=== PATIENT | female | born 1990 | race American Indian/Alaskan Native ===

== ENCOUNTER 2020-07-11 10:03 | Inpatient (IN) ==
[2020-07-11] MEDS ORDERED: OXYTOCIN 30 UNITS/500 ML BAG IV PRN ×2 (10:55→21:24)
--- NOTE | 2020-07-11 11:07 | History & Physical Report ---
Date of Service July 11, 2020 Assessment & Plan (1) Elective induction of labor planned: (2) History of IUFD: 29 yo [id number] at 39.2 wks with h/o preeclampsia, IUGR,IUFD at 29 wks in 2017, then FT in 2018 VSS Afebrile FHR reassuring GBS neg Cervic unfavorable Plan to admit, monitor, labs, Cervical ripening All questions were answered (3) History of pre-eclampsia in prior , currently : (4) Gestational diabetes mellitus (GDM): Admission and Anticipated Discharge Date Admission Date: July 11, 2020 History of Present Illness Primary Care Provider: Germania Mujica Patient is a 29 yo at 39.2 wks who is being admitted for induction of labor at term due to history of IUGR, severe preeclampsia and still at 29 weeks during her first in [facility]. Her second was uncomplicated she was delivered by myself at 39 weeks training 2977 g healthy baby girl. She has been taking low-dose aspirin since the beginning of this . Last growth scan was at 34 weeks and normal growth. She has diet-controlled gestational diabetes, not required medications. Patient has no complaints today. No contractions, leakage of fluid, vaginal bleeding. She reports good movements. No fever, chills, chest pain, shortness of breath, cough. She had COVID in and recovered completely. Allergies Allergy/AdvReac Type Severity Reaction Status Date / Time No Known Allergies Allergy Unverified 01/20/18 11:47 Home Medications Medication Instructions Recorded Confirmed Type 1 tab PO DAILY 90 Days #90 tab 01/20/18 01/21/18 History aspirin [Aspir-81] 81 mg PO DAILY #0 01/20/18 01/21/18 History calcium carbonate-vitamin D3 1 tab PO BID #0 tab 01/20/18 01/21/18 History [Os-Malik 500 + D3] ferrous sulfate 325 mg PO BID #0 01/20/18 01/21/18 History ibuprofen 600 mg PO Q6 PRN #40 tab 01/22/18 Rx Patient History Medical History No known health problems Surgical History History of dilatation and curettage Social History Assistive Devices: None OB History per HPI [employer] History No h/o STD Review of Systems All systems reviewed & are unremarkable except as noted in HPI & below Physical Exam Constitutional: WD/WN, vitals as above well developed Confortable, NAD Gastrointestinal (Abdomen): normal bowel sounds, soft, nontender, no hepatosplenomegaly (GRAVID) Genitourinary: normal external appearance OB Exam Abdomen: + vertex Manual OB Exam: + cervical dilation 1 cm, + cervical effacement 20% and + station high OB Exam Monitor Tracing: + external uterine monitor used and + category I Results & Data ([facility]) Vital Signs (Past 12 Hours) Vital Signs Pulse BP 07/11/20 10:19 81 122/77
[2020-07-11] MEDS ORDERED: DINOPROSTONE 10 MG INSERT PV ONE (11:15)
[2020-07-11 11:18] LABS: Hematocrit (blood only) 32.5 % (37-47); Hemoglobin 11.2 g/dL (12.0-16.0); Mean Corpuscular Hemoglobin 29.7 pg (25-34); Mean Corpuscular Hgb Conc 34.5 g/dL (32-36); Mean Corpuscular Volume 86.2 fL (80-100); Mean Platelet Volume 9.7 fL (7.4-10.4); Platelet Count 241 K/uL (130-400); RDW Coefficient of Variation 14.7 % (11.5-14.5); RDW Standard Deviation 45.4 fL (36.4-46.3); Red Blood Count 3.77 M/uL (4.2-5.4); White Blood Count 6.74 K/uL (4.8-10.8)
[2020-07-11 11:44] LABS: Albumin Level 2.7 gm/dl (3.4-5.0); BUN Creatinine Ratio 19.1 (10-20); Creatinine Clr Calc Pharmacy 140.8 ml/min; Est GFR (African American) 147.6; Est GFR (Non-African American) 127.3; Potassium 3.3 mmol/L (3.5-5.1)
[2020-07-11 11:47] LABS: Albumin Globulin Ratio 0.7 (0.9-2); Bilirubin,Total 0.2 mg/dl (0.2-1); Globulin 3.7 gm/dl (2.5-4.0); Total Protein 6.4 gm/dl (6.4-8.2)
[2020-07-11] MEDS ORDERED: BUPIVACAINE 0.25% 30 ML VIAL ONE (17:13)
[2020-07-11] MEDS ORDERED: fentaNYL citrate 100 MCG/2 ML VIAL ONE (17:13)
[2020-07-11] MEDS ORDERED: ePHEDrine sulfate 50 MG/ML AMP ONE (17:13)
[2020-07-11] MEDS ORDERED: SODIUM CHLORIDE 0.9% INJ 10 ML VIAL ONE (17:13)
[2020-07-11] MEDS ORDERED: fentaNYL 2MCG/ML ROPIVACAINE 1.25MG/ML 100 ML BAG EPI ONE (17:14)
[2020-07-11] MEDS: LACTATED RINGER'S 1,000 ML IV PRN ×2 (17:20→17:58)
--- NOTE | 2020-07-11 17:22 | Obstetrical Progress Note ---
Date of Service July 11, 2020 Assessment & Plan Admission and Anticipated Discharge Date Admission Date: July 11, 2020 Subjective Patient is reevaluated She has been feeling crampy Pain was intense when she was walking, now tolerabel in bed VE; 4-5 cm/ 60%/ -2, bulging bag, AROM'ed with verbal consent, clear fluid FHR categ I Continue to monitor closely Results & Data ([facility]) Vital Signs (Past 12 Hours) Vital Signs Temp Pulse Resp BP 07/11/20 15:09 36.9 C 16 07/11/20 15:02 80 123/81 07/11/20 14:01 89 128/77 07/11/20 13:59 37.1 C 20 07/11/20 11:13 36.8 C 20 07/11/20 10:19 36.8 C 81 20 122/77
--- NOTE | 2020-07-11 18:01 | Anesthesiology Consultation ---
Date of Service July 11, 2020 Assessment & Plan (1) Encounter for pre-operative examination: Chart Review Chart Review: Acceptable Risk for Labor Epidural History Height/Weight Height: 5 ft 2 in Weight: 67.132 kg Allergies Allergy/AdvReac Type Severity Reaction Status Date / Time No Known Allergies Allergy Verified 07/11/20 12:18 Medications Home Medications Medication Instructions Recorded Confirmed Last Taken calcium carbonate-vitamin D3 1 tab PO BID #0 tab 01/20/18 07/11/20 07/10/20 13:00 [Os-Malik 500 + D3] aspirin 81 mg PO DAILY 07/11/20 07/11/20 07/10/20 13:00 prenat.vits,malik,fnh-vgxy-etely 1 tab PO DAILY 07/11/20 07/11/20 07/10/20 13:00 [ Vitamin] Active Medications Generic Name Dose Route Start Last Admin Trade Name Freq PRN Reason Stop Dose Admin Lactated Ringer's 1,000 mls @ 150 mls/hr 07/11/20 10:55 07/11/20 17:58 Lr IV 07/13/20 10:54 150 mls/hr .[id number] PRN Administration L&D Protocol Protocol Past Medical History Medical History No known health problems Past Surgical History Surgical History History of dilatation and curettage Social History Smoking Status: Never smoker Hx Alcohol Use: No Hx Substance Use: No substance use type: does not use Physical Exam Vital Signs Last Vital Signs Temp 36.9 C 07/11/20 15:09 Pulse 78 07/11/20 17:58 Resp 16 07/11/20 15:09 BP 135/89 07/11/20 17:27 Pulse Ox 100 07/11/20 17:58 Testing Laboratory Results 07/11/20 11:07 07/11/20 11:07
[2020-07-11] MEDS ORDERED: fentaNYL 2MCG/ML ROPIVACAINE 1.25MG/ML 100 ML BAG EPI PRN (18:21)
[2020-07-11] MEDS ORDERED: NALOXONE HCL 1 MG in SODIUM CHLORIDE 0.9% 1000ML 1,000 ML IV PRN (18:21)
[2020-07-11] MEDS ORDERED: ONDANSETRON INJ 2 MG/ML 2 ML VIAL IV PRN (18:21)
[2020-07-11] MEDS ORDERED: ePHEDrine sulfate 50 MG/ML AMP IV PRN (18:21)
[2020-07-11] MEDS ORDERED: NALOXONE HCL 0.4 MG/1 ML VIAL/CARP IV PRN (18:21)
--- NOTE | 2020-07-11 19:24 | Obstetrical Progress Note ---
Date of Service July 11, 2020 Assessment & Plan Admission and Anticipated Discharge Date Admission Date: July 11, 2020 Subjective Patient is reevaluated She feels comfortable now, received epidural VE: Cervidil was out, on the bed, cervix 7 cm/ 80%/ 0 FHR categ I Continue to monitor closely Anticipate Results & Data ([place]) Vital Signs (Past 12 Hours) Vital Signs Temp Pulse Resp BP Pulse Ox 07/11/20 19:19 76 100 07/11/20 19:14 71 100 07/11/20 19:09 62 100 07/11/20 19:07 70 125/78 07/11/20 19:06 86 92 07/11/20 19:04 75 99 07/11/20 18:59 70 98 07/11/20 18:54 69 100 07/11/20 18:53 78 115/73 07/11/20 18:49 77 100 07/11/20 18:44 82 100 07/11/20 18:39 95 H 100 07/11/20 18:34 90 98 07/11/20 18:32 83 121/71 07/11/20 18:31 80 125/65 07/11/20 18:29 80 100 07/11/20 18:28 81 112/67 07/11/20 18:26 80 112/69 07/11/20 18:24 74 117/73 99 07/11/20 18:22 76 117/73 07/11/20 18:20 72 114/69 07/11/20 18:19 76 100 07/11/20 18:14 72 100 07/11/20 18:09 73 100 07/11/20 18:07 69 140/83 07/11/20 18:05 71 152/86 H 07/11/20 18:04 76 100 07/11/20 17:58 78 100 07/11/20 17:53 77 100 07/11/20 17:50 36.8 C 16 07/11/20 17:48 74 100 07/11/20 17:43 77 100 07/11/20 17:38 80 100 07/11/20 17:33 80 99 07/11/20 17:28 72 100 07/11/20 17:27 78 135/89 07/11/20 17:23 74 100 07/11/20 15:09 36.9 C 16 07/11/20 15:02 80 123/81 07/11/20 14:01 89 128/77 07/11/20 13:59 37.1 C 20 07/11/20 11:13 36.8 C 20 07/11/20 10:19 36.8 C 81 20 122/77
[2020-07-11] MEDS ORDERED: bisacodyL 10 MG SUPP PR PRN (21:24)
[2020-07-11] MEDS ORDERED: SUPERCREAM 0.870% 15 GM JAR EXT PRN (21:24)
[2020-07-11] MEDS ORDERED: DIPHTHERIA/TETANUS/PERTUSSIS 0.5 ML SYR/VIAL IM ONE (21:24)
[2020-07-11] MEDS ORDERED: MEASLES, MUMPS & RUBELLA VIRUS VIAL SQ ONE (21:24)
[2020-07-11] MEDS ORDERED: HYDROCORTISONE ACETATE 25 MG SUPP PR PRN (21:24)
[2020-07-11] MEDS ORDERED: BENZOCAINE 20% AER SPR 82.5 GM CAN EXT PRN (21:24)
--- NOTE | 2020-07-11 21:24 | Anesthesia Procedure Note ---
Date of Service July 11, 2020 Anesthesia Post Epidural Note Vital Signs Vital Signs: Temp Pulse Resp BP Pulse Ox 36.5 C 67 18 127/73 100 07/11/20 19:07 07/11/20 21:21 07/11/20 20:55 07/11/20 21:21 07/11/20 21:09 Notes Mental Status: alert / awake / arousable and participated in evaluation Nausea / Vomiting: adequately controlled Pain: adequately controlled Airway Patency, RR, SpO2: stable & adequate BP & HR: stable & adequate Hydration State: stable & adequate Neuraxial Anesthesia: was administered and sensory block is resolving Anesthetic Complications: no major complications apparent and Pt Satisfied with anesthetic care Epidural: Removed without complications and With tip intact
--- NOTE | 2020-07-12 00:46 | Delivery Summary ---
DATE OF OPERATION: 07/11/2020 TIME: 20:54 p.m. DETAILS OF DELIVERY: The patient was found to be fully dilated and desired to push. She pushed only twice and delivered the head without difficulty. The head was in a direct occiput posterior position and shoulders came right after with the head with the same push. There was a nuchal cord around the neck x1 which was reduced and baby was handed off to the mother where mouth and nose were suctioned. Cord was clamped x2 and cut at 1 minute delay. The vagina and perineum were checked for lacerations. There was a small second-degree perineal laceration, which was confirmed with rectal exam. Excellent sphincter tone was noted. Gloves were changed. The perineal body muscles around the sphincter were held with Allis clamps brought together with U-type and [id number] type sutures supporting the external sphincter. Rectal exam was repeated. No sutures were felt and excellent sphincter tone was noted and the rest of the vagina was repaired with another 2-0 Vicryl in a running fashion, skin in a subcuticular fashion. Excellent hemostasis was achieved The rest of the vagina, perineum and labia were intact. Placenta was found to be in the vagina, delivered spontaneous as intact and complete. Uterus was explored, found to be empty. Lower segment was cleared of all clots and debris. Fundus was firm. EBL was 300ml. Mom and baby tolerated the procedure well. Sponge, lap, needle count was correct x2. Baby was a viable female infant, Apgars 8/8. Weight was 2833 gr. No complications happened. I was present during whole procedure. I attest to the content of the Intraoperative Record and any orders documented therein. Any exceptions are noted below. MTDD
[2020-07-12] MEDS: IBUPROFEN 600 MG TAB PO PRN ×4 (00:56→15:24)
[2020-07-12 06:28] LABS: Hematocrit (blood only) 28.4 % (37-47); Hemoglobin 9.5 g/dL (12.0-16.0); Mean Corpuscular Hemoglobin 29.2 pg (25-34); Mean Corpuscular Hgb Conc 33.5 g/dL (32-36); Mean Corpuscular Volume 87.4 fL (80-100); Mean Platelet Volume 10.2 fL (7.4-10.4); Platelet Count 226 K/uL (130-400); RDW Coefficient of Variation 14.5 % (11.5-14.5); RDW Standard Deviation 46.6 fL (36.4-46.3); Red Blood Count 3.25 M/uL (4.2-5.4); White Blood Count 10.37 K/uL (4.8-10.8)
[2020-07-12] MEDS: PRENATAL VITAMIN 1 TAB PO SCH (07:43)
[2020-07-12] MEDS: DOCUSATE SODIUM 100 MG CAP PO SCH ×2 (07:43→20:10)
[2020-07-12] MEDS: FERROUS SULFATE 325 MG TAB PO SCH (07:43)
[2020-07-12] MEDS: ACETAMINOPHEN 325 MG TAB PO PRN ×3 (07:46→20:11)
--- NOTE | 2020-07-12 08:22 | Obstetrical Progress Note ---
Date of Service July 12, 2020 Assessment & Plan Admission and Anticipated Discharge Date Admission Date: July 11, 2020 Subjective PPD#1 doing well passing gas tolerating diet out of bed no pain or bleeding Physical Exam Constitutional: WD/WN, vitals as above comfortable abdomen soft non tender fundus firm no edema neg Doug's tent d/c in AM Results & Data ([facility]) Vital Signs (Past 12 Hours) Vital Signs Temp Pulse Pulse Resp BP BP Pulse Ox 07/12/20 07:07 36.9 C 69 18 121/80 100 07/12/20 04:15 36.4 C L 72 18 117/80 07/12/20 00:15 36.6 C 71 18 120/81 07/11/20 23:51 74 129/68 07/11/20 23:36 80 18 129/80 07/11/20 23:21 71 118/72 07/11/20 23:06 81 18 129/74 07/11/20 22:51 71 131/74 07/11/20 22:42 76 129/80 07/11/20 22:39 18 07/11/20 22:24 73 18 133/85 07/11/20 22:07 74 18 129/74 07/11/20 21:51 193 H 134/77 07/11/20 21:36 63 18 126/79 07/11/20 21:21 67 127/73 07/11/20 21:09 71 100 07/11/20 21:07 78 125/70 07/11/20 21:04 67 98 07/11/20 20:59 72 100 07/11/20 20:55 18 07/11/20 20:54 82 97 07/11/20 20:52 82 141/85 H 86 L 07/11/20 20:49 77 99 07/11/20 20:44 74 100 07/11/20 20:43 70 92 07/11/20 20:39 67 100 07/11/20 20:37 71 137/82 07/11/20 20:34 69 100 07/11/20 20:30 18 07/11/20 20:29 62 100 07/11/20 20:24 64 100 07/11/20 20:22 63 123/80 Laboratory Results Laboratory Results - last 48 hr 07/11/20 07/11/20 07/11/20 11:07 11:07 Unknown WBC 6.74 RBC 3.77 L Hgb 11.2 L Hct 32.5 L MCV 86.2 MCH 29.7 MCHC 34.5 RDW Std Deviation 45.4 RDW Coeff of Tommy 14.7 H Plt Count 241 MPV 9.7 Sodium 144 Potassium 3.3 L Chloride 112 H Carbon Dioxide 23 Anion Gap 9.0 BUN 10 Creatinine 0.52 L Est Cr Clr Drug Dosing 140.8 Est GFR ( Amer) 147.6 Est GFR (Non-Af Amer) 127.3 BUN/Creatinine Ratio 19.1 Glucose 80 Calcium 9.0 Total Bilirubin 0.2 AST 11 L ALT 22 Alkaline Phosphatase 114 Total Protein 6.4 Albumin 2.7 L Globulin 3.7 Albumin/Globulin Ratio 0.7 L COVID-19 [facility]-2, RNA, NAAT 07/11/20 07/12/20 Unknown 06:05 WBC 10.37 RBC 3.25 L Hgb 9.5 L Hct 28.4 L MCV 87.4 MCH 29.2 MCHC 33.5 RDW Std Deviation 46.6 H RDW Coeff of Tommy 14.5 Plt Count 226 MPV 10.2 Sodium Potassium Chloride Carbon Dioxide Anion Gap BUN Creatinine Est Cr Clr Drug Dosing Est GFR ( Amer) Est GFR (Non-Af Amer) BUN/Creatinine Ratio Glucose Calcium Total Bilirubin AST ALT Alkaline Phosphatase Total Protein Albumin Globulin Albumin/Globulin Ratio COVID-19 Eval Order SARS-CoV-2, RNA, NAAT NEGATIVE
[2020-07-12] MEDS ORDERED: bisacodyL 5 MG TABEC PO SCH (20:00)
[2020-07-13] MEDS: IBUPROFEN 600 MG TAB PO PRN ×3 (00:19→15:53)
[2020-07-13] MEDS: ACETAMINOPHEN 325 MG TAB PO PRN ×2 (04:19→18:47)
[2020-07-13 06:08] LABS: Hemoglobin 9.6 g/dL (12.0-16.0)
[2020-07-13] MEDS: DOCUSATE SODIUM 100 MG CAP PO SCH (08:11)
[2020-07-13] MEDS: PRENATAL VITAMIN 1 TAB PO SCH (08:11)
[2020-07-13 08:37] VITALS: O2SAT 100
[2020-07-13] MEDS: FERROUS SULFATE 325 MG TAB PO SCH (09:28)
--- NOTE | 2020-07-13 13:16 | Obstetrical Progress Note ---
Date of Service July 13, 2020 Assessment & Plan Admission and Anticipated Discharge Date Admission Date: July 11, 2020 Subjective Patient is seen and examined. She feels well, no complaints. Ambulating without dizziness Voiding without difficulty Tolerating regular diet with out N&V Bleeding is minimal No fever/ chills/ CP/ SOB/ N&V/ Leg pain Breast feeding without problems Bbay is staying in nursery Vital Signs Temp Pulse Resp BP Pulse Ox 07/13/20 07:25 36.9 C 81 18 130/85 100 07/13/20 00:15 36.4 C L 66 16 127/86 98 07/12/20 20:45 36.9 C 66 16 118/79 100 07/12/20 15:15 37.0 C 79 20 117/76 Lab Results 07/11/20 07/11/20 07/11/20 Range/Units 11:07 11:07 Unknown WBC 6.74 (4.8-10.8) K/uL RBC 3.77 L (4.2-5.4) M/uL Hgb 11.2 L (12.0-16.0) g/dL Hct 32.5 L (37-47) % MCV 86.2 (80-100) fL MCH 29.7 (25-34) pg MCHC 34.5 (32-36) g/dL RDW Std Deviation 45.4 (36.4-46.3) fL RDW Coeff of Tommy 14.7 H (11.5-14.5) % Plt Count 241 (130-400) K/uL MPV 9.7 (7.4-10.4) fL Sodium 144 (136-145) mmol/L Potassium 3.3 L (3.5-5.1) mmol/L Chloride 112 H (98-107) mmol/L Carbon Dioxide 23 (21-32) mmol/L Anion Gap 9.0 (3-11) BUN 10 (7-18) mg/dl Creatinine 0.52 L (0.6-1.2) mg/dl Est Cr Clr Drug Dosing 140.8 ml/min Est GFR ( Amer) 147.6 Est GFR (Non-Af Amer) 127.3 BUN/Creatinine Ratio 19.1 (10-20) Glucose 80 (70-99) mg/dl Calcium 9.0 (8.5-10.1) mg/dl Total Bilirubin 0.2 (0.2-1) mg/dl AST 11 L (15-37) U/L ALT 22 (12-78) U/L Alkaline Phosphatase 114 (45-117) U/L Total Protein 6.4 (6.4-8.2) gm/dl Albumin 2.7 L (3.4-5.0) gm/dl Globulin 3.7 (2.5-4.0) gm/dl Albumin/Globulin Ratio 0.7 L (0.9-2) COVID-19 Eval Order Covid19 [facility] SARS-CoV-2, RNA, NAAT (NEGATIVE) 07/11/20 07/12/20 07/13/20 Range/Units Unknown 06:05 05:46 WBC 10.37 (4.8-10.8) K/uL RBC 3.25 L (4.2-5.4) M/uL Hgb 9.5 L 9.6 L (12.0-16.0) g/dL Hct 28.4 L 28.0 L (37-47) % MCV 87.4 (80-100) fL MCH 29.2 (25-34) pg MCHC 33.5 (32-36) g/dL RDW Std Deviation 46.6 H (36.4-46.3) fL RDW Coeff of Tommy 14.5 (11.5-14.5) % Plt Count 226 (130-400) K/uL MPV 10.2 (7.4-10.4) fL Sodium (136-145) mmol/L Potassium (3.5-5.1) mmol/L Chloride (98-107) mmol/L Carbon Dioxide (21-32) mmol/L Anion Gap (3-11) BUN (7-18) mg/dl Creatinine (0.6-1.2) mg/dl Est Cr Clr Drug Dosing ml/min Est GFR ( Amer) Est GFR (Non-Af Amer) BUN/Creatinine Ratio (10-20) Glucose (70-99) mg/dl Calcium (8.5-10.1) mg/dl Total Bilirubin (0.2-1) mg/dl AST (15-37) U/L ALT (12-78) U/L Alkaline Phosphatase (45-117) U/L Total Protein (6.4-8.2) gm/dl Albumin (3.4-5.0) gm/dl Globulin (2.5-4.0) gm/dl Albumin/Globulin Ratio (0.9-2) COVID-19 Eval Order SARS-CoV-2, RNA, NAAT NEGATIVE (NEGATIVE) PE: General: Alert, orientedx3, NAD Abd: soft, NT, fundus firm, below Umbilicus Perineum intact, Lochia rubra minimal Ext; NT, no edema AP: 29 yo s/p , ppd# 2 VSS Afebrile doing well Continue routine care All questions were answered Discussed when to call D/C nesting Results & Data ([facility]) Vital Signs (Past 12 Hours) Vital Signs Temp Pulse Resp BP Pulse Ox 07/13/20 07:25 36.9 C 81 18 130/85 100
[2020-07-13 18:10] VITALS: BP 137/87; PULSE 84; TEMP 99.1
== END 2020-07-13 19:19 | disposition home or self-care (01) | DRG 807 ==
LOC: 4S1 10:03 → 4S2 07-12 00:03